=== PATIENT | female | born 1995 | race Caucasian/White ===

== ENCOUNTER 2021-09-02 14:24 | Emergency (ER) | payer BC ==
[2021-09-02 15:35] LABS: CARBON DIOXIDE,CO2 28.6 mmol/L (21.0-32.0); POTASSIUM,K 3.9 mmol/L (3.5-5.1)
== END 2021-09-02 16:11 | disposition home or self-care (01) ==
LOC: MW.ED 14:24
DX: N39.0 Urinary tract infection, site not specified (principal); Z88.5 Allergy status to narcotic agent; Z79.899 Other long term (current) drug therapy
CPT/HCPCS: 36415; 80048; 81001; 81025; 85025; 87086; 99283

== ENCOUNTER 2022-04-20 09:18 | Emergency (ER) | payer BC ==
[2022-04-20] MEDS ORDERED: Acetaminophen 325 MG Tab PO ONE (09:38)
[2022-04-20 10:25] LABS: BLOOD UREA NITROGEN,BUN 15 mg/dL (7.0-18.0); CARBON DIOXIDE,CO2 24.2 mmol/L (21.0-32.0); CHLORIDE,CL 105 mmol/L (98-107); GLUCOSE RANDOM 103 mg/dL (74-106); POTASSIUM,K 4.6 mmol/L (3.5-5.1); SODIUM,NA 140 mmol/L (136-145)
[2022-04-20 10:28] LABS: ESTIMATED GFR 121 mL/min (>60)
[2022-04-20] MEDS ORDERED: Ibuprofen 400 MG Tab PO ONE (10:46)
== END 2022-04-20 12:00 | disposition home or self-care (01) ==
LOC: MW.ED 09:18
DX: O20.9 Hemorrhage in early pregnancy, unspecified (principal); Z88.5 Allergy status to narcotic agent; Z3A.01 Less than 8 weeks gestation of pregnancy
CPT/HCPCS: 36415; 80053; 84702; 85025; 86900; 86901; 99284; A9270